=== PATIENT | female | born 1960 | race Caucasian/White ===

== ENCOUNTER → 2016-05-20 | Outpatient (CLI) | payer BC ==
[~2016-05-20] MED LIST: ALBU6.7H INH; AUGM875 PO; DICL50 PO; DICL75TA PO; HYDR39SU2 RECTAL; MULTTAB67 PO; SIMV20 PO; SIMV20TA PO; TUSSSUS PO; TYLETAB36 PO; UBIQ100C PO; VITA100064 PO; prempro PO
[2016-05-20 11:14] LABS: AUTOMATED NEUTROPHIL # 2.6 TH/MM3 (1.8-7.7); BASOPHIL % 0.6 % (0.0-2.0); EOSINOPHIL # 0.3 TH/MM3 (0-0.4); EOSINOPHIL % 5.4 % (0.0-4.0); HEMATOCRIT 44.3 % (35.0-46.0); HEMO FLAGS DIFF FINAL; LYMPH % 40.4 % (9.0-44.0); LYMPHOCYTE # 2.2 TH/MM3 (1.0-4.8); MEAN CELL VOLUME 90.2 FL (80.0-100.0); MEAN CORPUSCULAR HEMOGLOBIN 30.1 PG (27.0-34.0); MEAN CORPUSCULAR HGB CONC 33.4 % (32.0-36.0); NEUT % 46.6 % (16.0-70.0); PLATELET COUNT 223 TH/MM3 (150-450); RED BLOOD COUNT 4.92 MIL/MM3 (4.00-5.30); RED CELL DISTRIBUTION WIDTH 12.6 % (11.6-17.2); WHITE BLOOD COUNT 5.5 TH/MM3 (4.0-11.0)
[2016-05-20 11:18] LABS: BLOOD, URINE NEG (NEG); GLUCOSE,URINE NEG (NEG); KETONE, URINE NEG (NEG); MUCUS URINE FEW /lpf (OCC); NITRITE,URINE NEG (NEG); PH, URINE 5.5 (5.0-8.5); URINE COLOR YELLOW (YELLW/STRAW)
[2016-05-20 11:19] LABS: COMMENT (UR) CULT NOT INDICATED; CULTURE IF INDICATED CULT NOT INDICATED
[2016-05-20 11:24] LABS: PROTHROMBIN TIME - PATIENT 10.8 SEC (9.8-11.6)
[2016-05-20 11:43] LABS: BICARBONATE 29.3 MEQ/L (21.0-32.0); POTASSIUM 4.4 MEQ/L (3.5-5.1)
--- NOTE | 2016-05-20 11:52 | RADRPT ---
EXAM DATE/TIME: 05/20/2016 11:37 [facility] COMPARISON: No previous studies available for comparison. INDICATIONS : Evaluate for pneumonia, pneumothorax and communicable diseases. Pre-op knee surgery MEDICAL HISTORY : Aspergillosis. SURGICAL HISTORY : Lobectomy. ENCOUNTER: Initial ACUITY: 1 day PAIN SCORE: 0/10 LOCATION: chest FINDINGS: PA and lateral views of the chest demonstrate the lungs to be symmetrically aerated without evidence of mass, infiltrate or effusion. The cardiomediastinal contours are unremarkable. Status post eviden ce of previous cardiothoracic surgery. Osseous structures are intact. CONCLUSION: No acute intrathoracic disease. Benjamín Sung MD on May 20, 2016 at 11:50 Board Certified Radiologist. This report was verified electronically.
--- NOTE | 2016-05-21 21:27 | EKG ---
Date Performed: 05/20/2016 Time Performed: 10:42:52 PTAGE: 55 years EKG: Sinus rhythm NORMAL ECG NO PREVIOUS TRACING DOCTOR: Clyde Garcia Interpretating Date/Time 05/21/2016 21:13:29
== END ==
LOC: CPRE 09:57
PROVIDERS: ATTEND Orthopaedic Surgery
DX: Z01.810 Encounter for preprocedural cardiovascular examination (principal); Z01.812 Encounter for preprocedural laboratory examination; S83.241A Other tear of medial meniscus, current injury, right knee, initial encounter
CPT/HCPCS: 36415; 71020; 80048; 81001; 85025; 85610; 93005

== ENCOUNTER → 2016-05-29 | Day surgery (SDC) | payer BC ==
--- NOTE | 2016-05-25 10:24 | MH ---
cc: BETZAIDA RHOADES DATE OF ADMISSION: 05/29/2016 ADMITTING DIAGNOSIS: 1. A medial meniscus tear of the right knee. 2. Effusion right knee. 3. Tenosynovitis right knee. 4. Pain right knee. HISTORY OF PRESENT ILLNESS: The patient is a 55-year-old white female who has experienced pain of her right knee of at least one year duration. She had noted the gradual onset of her discomfort unrelated to injury or unusual activity. She had initially conformed to conservative management which included Tylenol and Aleve during which time her symptoms tended to wax and wane in nature. She subsequently began to note increasing discomfort about her right knee for which she underwent orthopedic evaluation within the previous six months while she was living in [place]. An MRI scan was completed, the results of which identified a complete tear involving the posterior root of the medial meniscus. The patient was also noted to have tricompartmental chondrosis as well as an effusion and synovitis of her right knee. She was prescribed a muscle relaxant medication and encouraged to continue utilizing Aleve for pain management. She also describes undergoing an aspiration of her right knee with cortisone injection with some temporary relief noted. She subsequently relocated to [place] during which time she had begun to note a gradual recurrence of pain about her right knee with associated swelling and a popping like sensation and a locking type discomfort but no actual giving way. She presented to the undersigned physician in May of this year and at that time described ongoing symptoms about her right knee that were felt to be consistent with an internal derangement. Findings and treatment options were reviewed. The pros and cons of continuing with conservative management versus operative intervention that would involve arthroscopic surgery was outlined in detail. Emphasis was made regarding the fact that the decision to proceed with surgery would be left entirely to the patient's discretion. At that time the patient expressed her desire to proceed with operative treatment as discussed and in compliance with her wishes she is currently being admitted in order that the above be accomplished. PAST MEDICAL HISTORY, HOSPITALIZATIONS AND SURGERIES: Her past medical history, hospitalizations and surgeries have included: 1. Surgery of both the right and left foot that apparently involved hammertoe corrections as well as a tendon repair of her left foot. 2. She has also undergone a right upper lobectomy for a history of aspergillosis. 3. Laser surgery of both eyes. 4. 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 5. Colonoscopy. The patient's medical illnesses include: 1. Elevated cholesterol for which she takes simvastatin 20 mg daily. 2. She has also taken diclofenac 75 mg twice daily. 3. Tylenol with Codeine p.r.n. 4. She uses a hydrocortisone suppository for a history of hemorrhoids. ALLERGIES: She denies any known drug allergies. REVIEW OF SYSTEMS: She does wear glasses. Denies headache, seizure or syncope. No sinus congestion or epistaxis. Auditory acuity intact. No tinnitus. No bleeding gums or dysphagia. Denies cough, shortness of breath, upper respiratory infection, pneumonia or tuberculosis. No angina or heart disease. Her appetite is good. She has intermittent constipation. No hepatitis, gallbladder disease or ulcers. She has a positive history of hemorrhoids. No urinary tract infection. No kidney stones. No previous fractures. No psychiatric illness. Her remaining review of systems is unremarkable and noncontributory. FAMILY HISTORY: The patient has been for five years, this being a second marriage. Her is 55 years of age and described as being in good health. One son indicated to be in good health. Family history is otherwise noncontributory, given the fact that the patient reports she was adopted. SOCIAL HISTORY: The patient completed a BS degree. She is unemployed. Denies active use of tobacco and ethanol consumption on a social basis. PHYSICAL EXAMINATION: HEIGHT: 5 feet 1 inch. WEIGHT: 156 pounds. GENERAL: An alert, oriented and responsive 55-year-old white female sitting quietly upon examination table. No obvious distress. HEAD, EYES, EARS, NOSE, THROAT: pupils are equally round and reactive to light. Extraocular movements full. Sclerae clear. External nares clear. External auditory canals clear. Dental intact. Mucous membranes pink and moist. Pharynx clear. NECK: The neck is supple. Active range of motion. No appreciable pain. Carotid pulse bilaterally. Trachea midline. Thyroid without enlargement. LUNGS: Clear to auscultation and percussion. No CVA tenderness. No discomfort throughout the dorsal or lumbar spine. HEART: Regular rhythm. No murmur or gallop. ABDOMEN: Soft, nontender. Bowel sounds present. PELVIC: Deferred. EXTREMITIES: Right knee has no significant swelling or effusion. Minimal medial joint line tenderness without palpable deformity. Apprehension and compression sign negative. Limited guarded mobility in the 100 degree range of flexion without associated crepitation. No ligamentous laxity. Isaiah test and draw sign negative. Pivot shift and Raghav sign positive for medial compartment pain. Distal sensory grossly intact. Independent gait. NEUROLOGIC: Cranial nerves II-XII grossly intact. IMPRESSION: 1. Medial meniscus tear of the right knee. 2. Effusion right knee. 3. Tenosynovitis right knee. 4. Pain right knee. PLAN: Arthroscopic surgery and possible arthrotomy right knee. The nature of the planned surgical procedure, the potential complications and risks associated, the expectations of surgery and the consent form were thoroughly reviewed with the patient prior to admission to the hospital. Jaime has indicated her full understanding regarding all of the above and given consent to proceed with treatment as outlined. MD BOOGIE March/NAOMI /5:15 PM /10:22 AM
[~2016-05-29] VITALS: Ht 154.9 cm; Wt 69.8 kg
[~2016-05-29] MED LIST changes: +ACETAMINOPHEN 1000 MG/100 ML VIAL IV ONE; +ACETAMINOPHEN/HYDROcodone 325 MG/5 MG TAB PO PRN; -ALBU6.7H INH; -AUGM875 PO; +DEXAMETHASONE SOD PHOS 4 MG/ML VIAL ONE; -DICL50 PO; +DO NOT ADM ANY ANTICOAGULANT DRUGS XX PRN; +FAMOTIDINE 20 MG/2 ML VIAL ONE; +INSULIN HUMAN REGULAR 1,000 UNITS/10 ML VIAL SQ PRN; +KETOROLAC TROMETHAMINE 60 MG/2 ML (IM) VIAL IM ONE; +LACTATED RINGER'S 1000 ML INJ 1,000 ML IV ONE; +LACTATED RINGER'S 1000 ML IV SCH; +LIDOCAINE HCL 2% 20 ML VIAL OTHER ONE; +LIDOCAINE HCL 2% 50 ML VIAL ONE; +METOPROLOL TARTRATE 25 MG TAB PO PRN; +MIDAZOLAM HCL 2 MG/2 ML VIAL ONE; +MORPHINE SULFATE 8 MG/ML INJ IM PRN; +ONDANSETRON HCL 4 MG/2 ML VIAL IV PUSH ONE; +POVIDONE IODINE 7.5% SCRUB 118 ML BOTTLE TOP SCH; +PROMETHAZINE INJ 25 MG/ML VIAL IM PRN; +PROPOFOL 200 MG/20 ML AMP IV ONE; -SIMV20 PO; +SODIUM CHLORID 0.9% 500 ML IV SCH; +TRIAMCINOLONE ACETONIDE 40 MG/ML VIAL IA ONE; -TUSSSUS PO; +ceFAZolin 2 GM PREMIX 50 ML IV SCH; +ePHEDrine/NS 25 MG/5 ML SYR IV ONE; +fentaNYL CITRATE 250 MCG/5 ML AMP ONE; -prempro PO
[2016-05-29 07:17] VITALS: BP 113/74; PULSE 62; RESP 16; TEMP 98; O2SAT 98
[2016-05-29 11:20] VITALS: BP 107/74; PULSE 66; RESP 18; TEMP 97.5; O2SAT 98
--- NOTE | 2016-06-03 14:05 | MP ---
cc: BETZAIDA WEBB DATE OF SURGERY: 05/29/2016 PREOPERATIVE DIAGNOSIS Medial meniscus tear of the right knee, effusion right knee, tenosynovitis right knee, pain right knee. POSTOPERATIVE DIAGNOSIS Medial meniscus tear of the right knee, effusion right knee, tenosynovitis right knee, pain right knee, synovial plica right. PROCEDURE Partial medial meniscectomy right knee, chondroplasty medial femoral condyle and resection of synovial plica right knee. SURGEON Jon ANESTHESIA General by LMA. FORMAT Following the induction of satisfactory general anesthesia by LMA insertion as completed per the Department of Anesthesia examination of the right knee revealed a satisfactory range of motion with no appreciable ligamentous instability. The extremity proper was positioned in the preschool teacher assistant knee rodriguez, prepped with Betadine solution and draped into a sterile field in the routine manner. Prior to initiation of the actual procedure the standard timeout protocol was completed. All parameters were appropriately addressed and confirmed by operating room personnel. Arthroscopic instrumentation was introduced through stab wound utilizing cannula with sharp and blunt trocar, the inflow irrigation by way of a medial suprapatellar portal, the arthroscope through a lateral parapatellar portal and probe through a medial parapatellar portal. Examination of the suprapatellar pouch revealed generalized reactive synovitis with a prominent synovial plica extending along the medial aspect of the suprapatellar region. Within the patellofemoral articulation there was mild chondromalacia changes appreciated. Initial evaluation of the medial compartment demonstrated articular irregularity along the femoral condyle that was consistent with localized chondromalacia. On direct visualization the medial meniscus appeared to be unremarkable. With probing, however, a cleavage-type tear involving the posterior horn was readily identified. There were some associated degenerative changes along the adjacent tibial plateau. The anterior cruciate ligament was identified and noted to be intact. Within the lateral compartment findings were within normal limits without evidence of internal derangement or appreciable articular irregularity. Attention was redirected to the medial compartment. Utilizing both a biting suction forceps as well as a 3.5 mm aggressive resector a partial medial meniscectomy was accomplished as well as a chondroplasty of the medial femoral condyle. The shaver was thereafter oriented into the suprapatellar region where the previously identified synovial plica was resected without difficulty. Upon completion of same the joint space was thoroughly lavaged and suctioned dry. An intraarticular Kenalog-lidocaine injection was completed. The portal sites were re-approximated with Steri-Strips over which Xeroform gauze and a bulky dry sterile dressing were placed. Anesthesia was discontinued and the patient thus transferred to a hospital stretcher and returned to the recovery room in satisfactory condition having tolerated her operative procedure well. Estimated blood loss was less than 10 cc. Betzaida Webb MD NBS/BT /10:09 AM /1:51 PM
== END | disposition home or self-care (01) ==
LOC: HSDC 06:19
PROVIDERS: ATTEND Orthopaedic Surgery
DX: S83.241A Other tear of medial meniscus, current injury, right knee, initial encounter (principal); M65.9 Synovitis and tenosynovitis, unspecified; E78.00 Pure hypercholesterolemia, unspecified
CPT/HCPCS: 01400; 29881; J0131; J0690; J1100; J1885; J2250; J2405; J3010; J3301; J7120